=== PATIENT | female | born 1940 | race African-American/Black ===

== ENCOUNTER → 2016-08-16 | Outpatient (CLI) | payer MEDICARE ==
[2016-08-16 13:23] LABS: PROTHROMBIN TIME 26.4 SEC (11.4-15.4)
== END ==
LOC: OD 12:42
PROVIDERS: ATTEND Internal Medicine Cardiovascular Disease
DX: I48.0 Paroxysmal atrial fibrillation (principal)
CPT/HCPCS: 36415; 85610

== ENCOUNTER → 2016-09-06 | Outpatient (CLI) | payer MEDICARE ==
[2016-09-06 13:07] LABS: PROTHROMBIN TIME 25.5 SEC (11.4-15.4)
== END ==
LOC: OD 11:49
PROVIDERS: ATTEND Internal Medicine Cardiovascular Disease
DX: I48.0 Paroxysmal atrial fibrillation (principal)
CPT/HCPCS: 36415; 85610

== ENCOUNTER → 2016-09-30 | Outpatient (CLI) | payer MEDICARE ==
[2016-09-30 12:43] LABS: PROTHROMBIN TIME 23.6 SEC (11.4-15.4)
== END ==
LOC: OD 11:19
PROVIDERS: ATTEND Internal Medicine Cardiovascular Disease
DX: I48.0 Paroxysmal atrial fibrillation (principal)
CPT/HCPCS: 36415; 85610

== ENCOUNTER → 2016-11-05 | Outpatient (CLI) | payer MEDICARE ==
[2016-11-05 09:29] LABS: PROTHROMBIN TIME 28.5 SEC (11.4-15.4)
== END ==
LOC: OD 08:36
PROVIDERS: ATTEND Internal Medicine Cardiovascular Disease
DX: I48.0 Paroxysmal atrial fibrillation (principal)
CPT/HCPCS: 36415; 85610

== ENCOUNTER → 2016-12-10 | Outpatient (CLI) | payer MEDICARE ==
[2016-12-10 09:39] LABS: PROTHROMBIN TIME 25.8 SEC (11.4-15.4)
== END ==
LOC: OD 08:40
PROVIDERS: ATTEND Internal Medicine Cardiovascular Disease
DX: I48.0 Paroxysmal atrial fibrillation (principal)
CPT/HCPCS: 36415; 85610

== ENCOUNTER → 2016-12-27 | Outpatient (CLI) | payer MEDICARE ==
[2016-12-27 09:06] LABS: ALANINE AMINOTRANSFERASE 25 U/L (9-52); ALBUMIN 4.1 g/dL (3.5-5.0); ALKALINE PHOSPHATASE 70 U/L (38-126); ANION GAP 13 (5-19); ASPARTATE AMINO TRANSFERASE 20 U/L (14-36); BILIRUBIN,DIRECT 0.2 mg/dL (0.0-0.4); BILIRUBIN,TOTAL 0.3 mg/dL (0.2-1.3); BLOOD UREA NITROGEN 21 mg/dL (7-20); CALCIUM 9.7 mg/dL (8.4-10.2); CARBON DIOXIDE 26 mmol/L (22-30); CHLORIDE 103 mmol/L (98-107); CHOLESTEROL 187.55 mg/dL (0-200); CREATININE RESULT 0.81 mg/dL (0.52-1.25); Direct HDL 109 mg/dL (>40); GLUCOSE 91 mg/dL (75-110); SODIUM 141.5 mmol/L (137-145); TOTAL PROTEIN 6.8 g/dL (6.3-8.2); TRIGLYCERIDES 69 mg/dL (<150)
[2016-12-27 09:17] LABS: DIRECT LDL 50 mg/dL (<100)
== END ==
LOC: OD 07:56
PROVIDERS: ATTEND Internal Medicine Geriatric Medicine
DX: E11.65 Type 2 diabetes mellitus with hyperglycemia (principal); I10 Essential (primary) hypertension
CPT/HCPCS: 36415; 80053; 80061

== ENCOUNTER → 2017-01-09 | Outpatient (CLI) | payer MEDICARE ==
[2017-01-09 13:09] LABS: PROTHROMBIN TIME 26.1 SEC (11.4-15.4)
== END ==
LOC: OD 11:33
PROVIDERS: ATTEND Internal Medicine Cardiovascular Disease
DX: I48.0 Paroxysmal atrial fibrillation (principal)
CPT/HCPCS: 36415; 85610

== ENCOUNTER → 2017-01-29 | Outpatient (CLI) | payer MEDICARE ==
[2017-01-29 14:59] LABS: PROTHROMBIN TIME 25.1 SEC (11.4-15.4)
== END ==
LOC: OD 13:56
PROVIDERS: ATTEND Internal Medicine Cardiovascular Disease
DX: I48.0 Paroxysmal atrial fibrillation (principal)
CPT/HCPCS: 36415; 85610

== ENCOUNTER → 2017-02-28 | Outpatient (CLI) | payer MEDICARE ==
[2017-02-28 10:45] LABS: PROTHROMBIN TIME 24.2 SEC (11.4-15.4)
== END ==
LOC: OD 09:54
PROVIDERS: ATTEND Internal Medicine Cardiovascular Disease
DX: I48.0 Paroxysmal atrial fibrillation (principal)
CPT/HCPCS: 36415; 85610

== ENCOUNTER 2017-03-03 10:30 | Day surgery (SDC) | payer MEDICARE ==
[~2017-03-03 10:30] MED LIST: PROPOFOL INJ 200 MG/20 ML VIAL IV ONE
[2017-03-03 12:20] VITALS: BP 129/66
--- NOTE | 2017-03-03 13:33 | Operative Report ---
Operative Report DATE OF SURGERY: 03/03/17 Operative Report: The risks, benefits and alternatives of the procedure including risks of bleeding, perforation requiring surgery are explained to the patient in detail and informed consent is obtained. Patient was taken back to the endoscopy suite and placed in the left, lateral decubital position. Timeout was called. Propofol medications administered. A rectal examination was done which did not reveal any masses, tears or fissures. An Olympus video scope was inserted into the patient's rectum. The scope was then carefully guided all the way to the cecum. The cecum was identified by the usual anatomical landmarks including the ileocecal valve and the appendiceal orifice. Photodocumentation is obtained. Prep is good. Scope was then sequentially pulled back via the various segments of the colon including the ascending colon, hepatic flexure, transverse colon, splenic flexure, descending colon and finding to the rectosigmoid portions of the colon. Retroflexion maneuver was performed. The risks benefits and alternatives of the procedure explained to the patient in detail and informed consent is obtained.A GIF Olympus video scope was inserted into the patient's mouth and hypopharynx ,the esophagus is identified intubated and insufflated, the scope was then advanced through the esophagus stomach and duodenum, retroflexion maneuver is done, the esophagus stomach and first and second portions of the duodenum examined PREOPERATIVE DIAGNOSIS: Weight loss. Personal history of colon polyp. Change of bowel habits POSTOPERATIVE DIAGNOSIS: The sigmoid polyps were removed via snare polypectomy and retrieved. Right side diverticulosis. Internal hemorrhoids. Gastritis status post biopsy rule out Helicobacter pylori OPERATION: Colonoscopy with snare polypectomy. EGD with biopsy SURGEON: ANOOP MARTINEZ ANESTHESIA: LMAC TISSUE REMOVED OR ALTERED: As described above COMPLICATIONS: None. ESTIMATED BLOOD LOSS: None. INTRAOPERATIVE FINDINGS: As described above. No bleeding noted. PROCEDURE: Patient tolerated the procedure well. No immediate postprocedure complications are noted. Patient discharged in good condition. Discharge date 03/03/2017. Discharge diet: Regular. Discharge activity: Regular. 2-3 week follow-up to discuss findings. Patient is instructed to call the office or proceed to the emergency room should there be any further problems or questions. We will wait on pathology. 3-5 year surveillance on the next colonoscopy.
== END 2017-03-03 12:20 | disposition home or self-care (01) ==
LOC: END 10:30
PROVIDERS: ATTEND Internal Medicine Gastroenterology
PROC: 0DB68ZX Excision of Stomach, Via Natural or Artificial Opening Endoscopic, Diagnostic (ICD-10-PCS; principal; 2017-03-03 11:30)
PROC: 0DBN8ZX Excision of Sigmoid Colon, Via Natural or Artificial Opening Endoscopic, Diagnostic (ICD-10-PCS; 2017-03-03 11:30)
DX: K63.5 Polyp of colon (principal); K64.8 Other hemorrhoids; K57.30 Diverticulosis of large intestine without perforation or abscess without bleeding; K31.9 Disease of stomach and duodenum, unspecified; E11.9 Type 2 diabetes mellitus without complications; I10 Essential (primary) hypertension; J45.909 Unspecified asthma, uncomplicated; J43.9 Emphysema, unspecified; R63.4 Abnormal weight loss; Z79.84 Long term (current) use of oral hypoglycemic drugs; Z79.899 Other long term (current) drug therapy; Z79.51 Long term (current) use of inhaled steroids; Z88.6 Allergy status to analgesic agent; Z68.21 Body mass index [BMI] 21.0-21.9, adult
CPT/HCPCS: 43239; 45385; 82962; 88342 ×2; 88305 ×2; J2704; 810

== ENCOUNTER → 2017-03-26 | Outpatient (CLI) | payer MEDICARE ==
[2017-03-26 17:12] LABS: PROTHROMBIN TIME 20.1 SEC (11.4-15.4)
== END ==
LOC: OD 15:54
PROVIDERS: ATTEND Internal Medicine Cardiovascular Disease
DX: I48.0 Paroxysmal atrial fibrillation (principal)
CPT/HCPCS: 36415; 85610

== ENCOUNTER → 2017-04-09 | Outpatient (CLI) | payer MEDICARE ==
[2017-04-09 11:48] LABS: PROTHROMBIN TIME 27.5 SEC (11.4-15.4)
== END ==
LOC: OD 10:59
PROVIDERS: ATTEND Internal Medicine Cardiovascular Disease
DX: I48.0 Paroxysmal atrial fibrillation (principal)
CPT/HCPCS: 36415; 85610

== ENCOUNTER → 2017-04-30 | Outpatient (CLI) | payer MEDICARE ==
[2017-04-30 12:52] LABS: PROTHROMBIN TIME 23.9 SEC (11.4-15.4)
== END ==
LOC: OD 11:46
PROVIDERS: ATTEND Internal Medicine Cardiovascular Disease
DX: I48.0 Paroxysmal atrial fibrillation (principal)
CPT/HCPCS: 36415; 85610

== ENCOUNTER → 2017-06-03 | Outpatient (CLI) | payer MEDICARE ==
[2017-06-03 11:19] LABS: PROTHROMBIN TIME 27.7 SEC (11.4-15.4)
== END ==
LOC: OD 10:12
PROVIDERS: ATTEND Internal Medicine Cardiovascular Disease
DX: I48.0 Paroxysmal atrial fibrillation (principal)
CPT/HCPCS: 36415; 85610

== ENCOUNTER → 2017-07-16 | Outpatient (CLI) | payer MEDICARE ==
[2017-07-16 09:21] LABS: PROTHROMBIN TIME 36.5 SEC (11.4-15.4)
== END ==
LOC: OD 08:41
PROVIDERS: ATTEND Internal Medicine Cardiovascular Disease
DX: I48.0 Paroxysmal atrial fibrillation (principal)
CPT/HCPCS: 36415; 85610

== ENCOUNTER → 2017-07-23 | Outpatient (CLI) | payer MEDICARE | LOC: LAB 08:13 | PROVIDERS: ATTEND Internal Medicine Geriatric Medicine | DX: E11.65 Type 2 diabetes mellitus with hyperglycemia (principal); I48.0 Paroxysmal atrial fibrillation | CPT/HCPCS: 36415; 83036; 85610 ==

== ENCOUNTER → 2017-08-06 | Outpatient (CLI) | payer MEDICARE ==
[2017-08-06 11:06] LABS: INTERNATIONAL RATION (INR) 2.51; PROTHROMBIN TIME 28.4 SEC (11.4-15.4)
== END ==
LOC: OD 09:21
PROVIDERS: ATTEND Internal Medicine Cardiovascular Disease
DX: I48.0 Paroxysmal atrial fibrillation (principal)
CPT/HCPCS: 36415; 85610

== ENCOUNTER → 2017-08-22 | Outpatient (CLI) | payer MEDICARE ==
[2017-08-22 11:12] LABS: INTERNATIONAL RATION (INR) 2.59; PROTHROMBIN TIME 29.1 SEC (11.4-15.4)
== END ==
LOC: OD 10:28
PROVIDERS: ATTEND Internal Medicine Cardiovascular Disease
DX: I48.0 Paroxysmal atrial fibrillation (principal)
CPT/HCPCS: 36415; 85610

== ENCOUNTER → 2017-08-29 | Outpatient (CLI) | payer MEDICARE ==
[2017-08-29 11:12] LABS: INTERNATIONAL RATION (INR) 2.29; PROTHROMBIN TIME 26.4 SEC (11.4-15.4)
== END ==
LOC: OD 10:03
PROVIDERS: ATTEND Internal Medicine Cardiovascular Disease
DX: I48.0 Paroxysmal atrial fibrillation (principal)
CPT/HCPCS: 36415; 85610

== ENCOUNTER → 2017-09-12 | Outpatient (CLI) | payer MEDICARE ==
[2017-09-12 10:25] LABS: INTERNATIONAL RATION (INR) 2.36; PROTHROMBIN TIME 27.1 SEC (11.4-15.4)
== END ==
LOC: OD 09:21
PROVIDERS: ATTEND Internal Medicine Cardiovascular Disease
DX: I48.0 Paroxysmal atrial fibrillation (principal)
CPT/HCPCS: 36415; 85610

== ENCOUNTER → 2017-09-26 | Outpatient (CLI) | payer MEDICARE ==
[2017-09-26 12:38] LABS: INTERNATIONAL RATION (INR) 2.11; PROTHROMBIN TIME 24.8 SEC (11.4-15.4)
== END ==
LOC: OD 11:10
PROVIDERS: ATTEND Internal Medicine Cardiovascular Disease
DX: I48.0 Paroxysmal atrial fibrillation (principal)
CPT/HCPCS: 36415; 85610

== ENCOUNTER → 2017-10-10 | Outpatient (CLI) | payer MEDICARE ==
[2017-10-10 12:14] LABS: INTERNATIONAL RATION (INR) 2.09; PROTHROMBIN TIME 24.6 SEC (11.4-15.4)
== END ==
LOC: OD 11:13
PROVIDERS: ATTEND Internal Medicine Cardiovascular Disease
DX: I48.0 Paroxysmal atrial fibrillation (principal)
CPT/HCPCS: 36415; 85610

== ENCOUNTER → 2017-10-29 | Outpatient (CLI) | payer MEDICARE ==
[2017-10-29 10:33] LABS: INTERNATIONAL RATION (INR) 2.17; PROTHROMBIN TIME 25.3 SEC (11.4-15.4)
== END ==
LOC: OD 08:33
PROVIDERS: ATTEND Internal Medicine Cardiovascular Disease
DX: I48.0 Paroxysmal atrial fibrillation (principal)
CPT/HCPCS: 36415; 85610

== ENCOUNTER → 2017-11-27 | Outpatient (CLI) | payer MEDICARE ==
[2017-11-27 14:51] LABS: INTERNATIONAL RATION (INR) 2.12; PROTHROMBIN TIME 24.8 SEC (11.4-15.4)
== END ==
LOC: OD 14:21
PROVIDERS: ATTEND Internal Medicine Cardiovascular Disease
DX: I48.0 Paroxysmal atrial fibrillation (principal)
CPT/HCPCS: 36415; 85610

== ENCOUNTER → 2018-01-02 | Outpatient (CLI) | payer MEDICARE ==
[2018-01-02 10:52] LABS: INTERNATIONAL RATION (INR) 2.32; PROTHROMBIN TIME 26.6 SEC (11.4-15.4)
== END ==
LOC: OD 10:07
PROVIDERS: ATTEND Internal Medicine Cardiovascular Disease
DX: I48.0 Paroxysmal atrial fibrillation (principal)
CPT/HCPCS: 36415; 85610

== ENCOUNTER → 2018-01-23 | Outpatient (CLI) | payer MEDICARE ==
[2018-01-23 11:13] LABS: INTERNATIONAL RATION (INR) 2.16; PROTHROMBIN TIME 25.2 SEC (11.4-15.4)
== END ==
LOC: OD 10:14
PROVIDERS: ATTEND Internal Medicine Cardiovascular Disease
DX: I48.0 Paroxysmal atrial fibrillation (principal)
CPT/HCPCS: 36415; 85610

== ENCOUNTER → 2018-03-03 | Outpatient (CLI) | payer MEDICARE ==
[2018-03-03 09:45] LABS: INTERNATIONAL RATION (INR) 2.04
== END ==
LOC: OD 08:49
PROVIDERS: ATTEND Internal Medicine Cardiovascular Disease
DX: I48.0 Paroxysmal atrial fibrillation (principal)
CPT/HCPCS: 36415; 85610

== ENCOUNTER → 2018-04-02 | Outpatient (CLI) | payer MEDICARE ==
[2018-04-02 14:30] LABS: INTERNATIONAL RATION (INR) 1.89; PROTHROMBIN TIME 22.7 SEC (11.4-15.4)
== END ==
LOC: OD 13:10
PROVIDERS: ATTEND Internal Medicine Cardiovascular Disease
DX: I48.0 Paroxysmal atrial fibrillation (principal)
CPT/HCPCS: 36415; 85610

== ENCOUNTER → 2018-04-28 | Outpatient (CLI) | payer MEDICARE ==
[2018-04-28 12:58] LABS: INTERNATIONAL RATION (INR) 2.11; PROTHROMBIN TIME 24.7 SEC (11.4-15.4)
== END ==
LOC: OD 11:48
PROVIDERS: ATTEND Internal Medicine Cardiovascular Disease
DX: I48.0 Paroxysmal atrial fibrillation (principal)
CPT/HCPCS: 36415; 85610

== ENCOUNTER → 2018-05-04 | Outpatient (CLI) | payer MEDICARE ==
--- NOTE | 2018-05-04 15:12 | RADIOLOGY REPORT (SQ) ---
EXAM DESCRIPTION: CAROTID DOPPLER COMPLETED DATE/TIME: 05/04/2018 1:52 pm REASON FOR STUDY: I99.8 I99.8 OTHER DISORDER OF CIRCULATORY SYSTEM COMPARISON: None. TECHNIQUE: Grayscale ultrasound, Doppler velocity and spectra, and color Doppler images acquired of the extra-cranial carotid and vertebral arteries. Images stored on PACS. LIMITATIONS: None. FINDINGS: RIGHT CAROTID CCA Velocities: Within normal limits. ICA Velocities Peak systolic 61 cm/s. End diastolic 23 cm/s. Proximal ICA/CCA peak systolic ratio 1.23. Mild noncalcified plaque in the carotid bulb. Spectra normal. LEFT CAROTID CCA Velocities: Within normal limits. ICA Velocities Peak systolic 92 cm/s. End diastolic 27 cm/s. Proximal ICA/CCA peak systolic ratio 1.48. Slight noncalcified plaque in the larotid bulb. Spectra normal. VERTEBRAL ARTERIES: Antegrade flow. Normal waveforms. SUBCLAVIAN ARTERIES: No finding. OTHER: No other significant finding. IMPRESSION: 1. NO HEMODYNAMICALLY SIGNIFICANT STENOSIS. COMMENT: Quality ID #[id number]: Velocity criteria are extrapolated from the diameter data as defined by t he Society of Radiologists in Ultrasound Consensus Conference. Radiology 2003: 229; 340-346. TECHNICAL DOCUMENTATION: JOB ID: [id number] [employer]- All Rights Reserved Reading location - IP/workstation name: [email or web address]
== END ==
LOC: SP 15:32
PROVIDERS: ATTEND Internal Medicine Geriatric Medicine
DX: I99.8 Other disorder of circulatory system (principal)
CPT/HCPCS: 93880

== ENCOUNTER → 2018-05-29 | Outpatient (CLI) | payer MEDICARE ==
[2014-01-20 11:20] LABS: INTERNATIONAL RATION (INR) 2.38; PROTHROMBIN TIME 25.3 SEC (11.4-15.4)
== END ==
LOC: OD 09:26
PROVIDERS: ATTEND Internal Medicine Cardiovascular Disease
DX: I48.0 Paroxysmal atrial fibrillation (principal)
CPT/HCPCS: 36415; 85610

== ENCOUNTER → 2018-06-01 | Outpatient (CLI) | payer MEDICARE ==
[2018-05-29 10:06] LABS: INTERNATIONAL RATION (INR) 1.94; PROTHROMBIN TIME 23.1 SEC (11.4-15.4)
== END ==
LOC: LAB 08:15
PROVIDERS: ATTEND Internal Medicine Cardiovascular Disease
DX: I48.0 Paroxysmal atrial fibrillation (principal)
CPT/HCPCS: 36415; 85610

== ENCOUNTER 2018-07-08 09:26 | Emergency (ER) | payer MEDICARE ==
[2018-07-08] MEDS ORDERED: ONDANSETRON HCL INJ/PF 4 MG/2 ML SDV IV ONE (10:14)
[2018-07-08 10:43] LABS: APPEARANCE,URINE CLEAR; BILIRUBIN,URINE NEGATIVE (NEGATIVE); COLOR,URINE STRAW; GLUCOSE, URINE NEGATIVE (NEGATIVE); KETONES,URINE NEGATIVE (NEGATIVE); LEUKOCYTE ESTERASE,URINE NEGATIVE (NEGATIVE); NITRITE,URINE NEGATIVE (NEGATIVE); PROTEIN,URINE NEGATIVE (NEGATIVE); URINE SPECIFIC GRAVITY 1.012; UROBILINOGEN,URINE NEGATIVE mg/dL (<2.0)
--- NOTE | 2018-07-08 11:13 | RADIOLOGY REPORT (SQ) ---
EXAM DESCRIPTION: CT FACIAL AREA WITHOUT COMPLETED DATE/TIME: 07/08/2018 10:57 am REASON FOR STUDY: syncope this am x2, hit face and head COMPARISON: None. TECHNIQUE: Noncontrasted images through the facial bones and orbits windowed for bone and soft tissu e. Additional coronal and sagittal reconstructed images reviewed. All images stored on PACS. All CT scanners at this facility use dose modulation, iterative reconstruction, and/or weight based d osing when appropriate to reduce radiation dose to as low as reasonably achievable (ALARA). [facility]: Dose Right [facility]: CareDose [facility]: Dose Right [facility]: Teradose 4D [facility]: Smart [employer] RADIATION DOSE: CT Rad equipment meets quality standard of care and radiation dose reduction techniq ues were employed. CTDIvol: 30.4 mGy. DLP: 589 mGy-cm. mGy. LIMITATIONS: None. FINDINGS: FACIAL BONES: No fracture or bone lesion. ORBITS: Intact. No fracture. Symmetric intact globes and retroorbital soft tissues. PARANASAL SINUSES: Clear. SOFT TISSUES: No mass or edema. INFERIOR BRAIN: See separate report same date. OTHER: No other significant finding. IMPRESSION: NO ACUTE FINDINGS. TECHNICAL DOCUMENTATION: JOB ID: [id number] Quality ID # [id number]: Final reports with documentation of one or more dose reduction techniques (e.g., Au tomated exposure control, adjustment of the mA and/or kV according to patient size, use of iterative reconstruction technique) 2010 [employer]- All Rights Reserved Reading location - IP/workstation name: [email or web address]
--- NOTE | 2018-07-08 11:19 | RADIOLOGY REPORT (SQ) ---
EXAM DESCRIPTION: CT HEAD WITHOUT COMPLETED DATE/TIME: 07/08/2018 10:57 am REASON FOR STUDY: syncope x2 this am, hit head COMPARISON: None. TECHNIQUE: Axial images acquired through the brain without intravenous contrast. Images reviewed wi th bone, brain and subdural windows. Additional sagittal and coronal reconstructions were generated. Images stored on PACS. All CT scanners at this facility use dose modulation, iterative reconstruction, and/or weight based d osing when appropriate to reduce radiation dose to as low as reasonably achievable (ALARA). [facility]: Dose Right [facility]: CareDose [facility]: Dose Right [facility]: Teradose 4D [facility]: Smart [employer] RADIATION DOSE: CT Rad equipment meets quality standard of care and radiation dose reduction techniq ues were employed. CTDIvol: 53.2 mGy. DLP: 1097 mGy-cm.mGy. LIMITATIONS: None. FINDINGS: VENTRICLES: Prominent. CEREBRUM: Old lacunar infarct right basal ganglia. No masses. No hemorrhage. No midline shift. Ar eas of low density in the white matter most likely due to chronic micro-vascular ischemic change. No evidence for acute infarction. CEREBELLUM: No masses. No hemorrhage. No alteration of density. No evidence for acute infarction. EXTRAAXIAL SPACES: Age-related involutional change. No fluid collections. No masses. ORBITS AND GLOBE: No intra- or extraconal masses. Normal contour of globe without masses. CALVARIUM: No fracture. PARANASAL SINUSES: No fluid or mucosal thickening. SOFT TISSUES: No mass or hematoma. OTHER: No other significant finding. IMPRESSION: CHRONIC CHANGES OF ATROPHY AND MICROVASCULAR ISCHEMIA. NO ACUTE PROCESS. EVIDENCE OF ACUTE STROKE: NO. TECHNICAL DOCUMENTATION: JOB ID: [id number] Quality ID # [id number]: Final reports with documentation of one or more dose reduction techniques (e.g., Au tomated exposure control, adjustment of the mA and/or kV according to patient size, use of iterative reconstruction technique) 2010 [email or web address]- All Rights Reserved Reading location - IP/workstation name: [email or web address]
[2018-07-08 11:20] LABS: HEMATOCRIT 29.5 % (36.0-47.0); HEMOGLOBIN 9.8 g/dL (12.0-15.5); MEAN CORPUSCULAR HEMOGLOBIN 28.1 pg (27.0-33.4); MEAN CORPUSCULAR HGB CONC 33.3 g/dL (32.0-36.0); MEAN CORPUSCULAR VOLUME 84 fl (80-97); RED BLOOD COUNT 3.51 10^6/uL (3.72-5.28); RED CELL DISTRIBUTION WIDTH 14.3 % (11.5-14.0); WHITE BLOOD COUNT 8.5 10^3/uL (4.0-10.5)
--- NOTE | 2018-07-08 11:27 | RADIOLOGY REPORT (SQ) ---
EXAM DESCRIPTION: CT CERVICAL SPINE WITHOUT COMPLETED DATE/TIME: 07/08/2018 10:57 am REASON FOR STUDY: unwitnessed fall COMPARISON: None. TECHNIQUE: Axial images acquired through the cervical spine without intravenous contrast. Images re viewed with lung, soft tissue and bone windows. Reconstructed coronal and sagittal MPR images review ed. Images stored on PACS. All CT scanners at this facility use dose modulation, iterative reconstruction, and/or weight based d osing when appropriate to reduce radiation dose to as low as reasonably achievable (ALARA). [facility]: Dose Right [facility]: CareDose [facility]: Dose Right [facility]: Teradose 4D [facility]: [employer] RADIATION DOSE: CT Rad equipment meets quality standard of care and radiation dose reduction techniq ues were employed. CTDIvol: 9.6 mGy. DLP: 188 mGy-cm. mGy. LIMITATIONS: None. FINDINGS: ALIGNMENT: Anatomic. MINERALIZATION: Normal. VERTEBRAL BODIES: No fractures or dislocation. DISCS: Multilevel disc space narrowing with osteophytes. FACETS, LATERAL MASSES, POSTERIOR ELEMENTS: Facet arthropathy. No fractures. No dislocation. No ac uday findings. HARDWARE: None in the spine. VISUALIZED RIBS: No fractures. LUNG APICES AND SOFT TISSUES: No significant or acute findings. OTHER: No other significant finding. IMPRESSION: CHRONIC DEGENERATIVE CHANGES. NO ACUTE FINDINGS. TECHNICAL DOCUMENTATION: JOB ID: [id number] Quality ID # [id number]: Final reports with documentation of one or more dose reduction techniques (e.g., Au tomated exposure control, adjustment of the mA and/or kV according to patient size, use of iterative reconstruction technique) 2010 [employer]- All Rights Reserved Reading location - IP/workstation name: [email or web address]
--- NOTE | 2018-07-08 11:34 | RADIOLOGY REPORT (SQ) ---
EXAM DESCRIPTION: ACUTE ABDOMEN SERIES COMPLETED DATE/TIME: 07/08/2018 11:02 am REASON FOR STUDY: eval for retained stool COMPARISON: None. NUMBER OF VIEWS: Three views. TECHNIQUE: Frontal chest, supine abdomen and upright/decubitus abdomen radiographic images acquired. LIMITATIONS: None. FINDINGS: CHEST: Lungs clear of infiltrates. FREE AIR: None. No abnormal gas collections. BOWEL GAS PATTERN: Abundant fecal material from the splenic flexure to the rectum. Gas fluid levels within nondilated small bowel. CALCIFICATIONS: No suspicious calcifications. HARDWARE: None in the abdomen. SOFT TISSUES: No gross mass or suggestion of organomegaly. BONES: No acute fracture. No worrisome bone lesions. OTHER: No other significant finding. IMPRESSION: Mild fecal retention. TECHNICAL DOCUMENTATION: JOB ID: [id number] [employer]- All Rights Reserved Reading location - IP/workstation name: [email or web address]
[2018-07-08 11:44] LABS: ABSOLUTE LYMPHOCYTES# (MANUAL) 0.6 10^3/uL (0.5-4.7); ABSOLUTE MONOCYTES # (MANUAL) 0.2 10^3/uL (0.1-1.4); ABSOLUTE NEUTROPHILS# (MANUAL) 7.7 10^3/uL (1.7-8.2); ALANINE AMINOTRANSFERASE 11 U/L (9-52); ALBUMIN 3.9 g/dL (3.5-5.0); ALKALINE PHOSPHATASE 58 U/L (38-126); ANION GAP 12 (5-19); ASPARTATE AMINO TRANSFERASE 15 U/L (14-36); BASOPHILS % (MANUAL) 0 % (0-2); BILIRUBIN,DIRECT 0.2 mg/dL (0.0-0.4); BILIRUBIN,TOTAL 0.3 mg/dL (0.2-1.3); BLOOD UREA NITROGEN 25 mg/dL (7-20); CALCIUM 9.6 mg/dL (8.4-10.2); CARBON DIOXIDE 29 mmol/L (22-30); CHLORIDE 100 mmol/L (98-107); CREATINE KINASE 39 U/L (30-135); EOSINOPHILS % (MANUAL) 0 % (0-6); GLUCOSE 99 mg/dL (75-110); LYMPHOCYTES % (MANUAL) 7 % (13-45); MONOCYTES % (MANUAL) 2 % (3-13); POTASSIUM 3.8 mmol/L (3.6-5.0); SEGMENTED NEUTROPHILS % (MAN) 91 % (42-78); SODIUM 140.7 mmol/L (137-145); TOTAL CELLS COUNTED 100; TOTAL PROTEIN 6.6 g/dL (6.3-8.2)
[2018-07-08] MEDS ORDERED: MINERAL OIL 30 ML UDCUP PR ONE (11:50)
[2018-07-08] MEDS ORDERED: MAGNESIUM CITRATE 296 ML BOTTLE PO ONE (11:50)
--- NOTE | 2018-07-08 11:52 | ER Document Report ---
ED General - General Chief Complaint: Passed Out Prior to Arrival Stated Complaint: CONSTIPATION Time Seen by Provider: 07/08/18 09:58 Mode of Arrival: Medic Information source: Patient, Relative Notes: Patient is a relatively healthy 78-year-old female who presents to the emergency department with chief complaint of constipation. Patient reports she has not had a bowel movement in 5 days. Upon further questioning, patient reports that this morning she passed out while she was sitting on the toilet. She thinks this is due to the pain at her rectum due to straining. She states that as soon as she had the ground she came to and remembers having some pain to her facial area across the bridge of her nose and forehead. Patient denies any nausea, vomiting, diarrhea or fever. She denies any chest pain or shortness of breath. Patient's daughters are accompanying her at the bedside and states that she has been doing well and has not been sick lately. TRAVEL OUTSIDE OF THE [place] IN LAST 30 DAYS: No - Related Data Allergies/Adverse Reactions: aspirin [Aspirin] Allergy (Verified 07/08/18 09:28) Tachycardia propoxyphene napsylate [From Darvocet-N 100] Adverse Reaction (Verified 09:28) Nausea Past Medical History - General Information source: Patient - Social History Smoking Status: Former Smoker Chew tobacco use (# tins/day): No Frequency of alcohol use: None Family History: Reviewed & Not Pertinent Patient has suicidal ideation: No Patient has homicidal ideation: No - Past Medical History Cardiac Medical History: Reports: Hx Atrial Fibrillation, Hx Heart Attack, Hx Hypertension Denies: Hx Coronary Artery Disease Pulmonary Medical History: Reports: Hx COPD - NO OXYGEN Denies: Hx Asthma, Hx Bronchitis, Hx Pneumonia Neurological Medical History: Denies: Hx Cerebrovascular Accident, Hx Seizures Endocrine Medical History: Reports: Hx Diabetes Mellitus Type 2 Renal/ Medical History: Denies: Hx Peritoneal Dialysis GI Medical History: Denies: Hx Hepatitis, Hx Hiatal Hernia, Hx Ulcer Musculoskeletal Medical History: 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 Denies: Hx Mastectomy, Hx Open Heart Surgery, Hx Pacemaker - Immunizations Hx Diphtheria, Pertussis, Tetanus Vaccination: Yes Hx Pneumococcal Vaccination: 07/04/17 Review of Systems - Review of Systems Gastrointestinal: Constipation Musculoskeletal: Other - Facial pain Neurological/Psychological: Other - Syncopal episode -: Yes All other systems reviewed and negative Physical Exam - Vital signs Vitals: Temp Pulse Resp BP Pulse Ox 97.7 F 72 20 117/65 100 07/08/18 09:31 07/08/18 09:31 07/08/18 09:31 07/08/18 09:31 07/08/18 09:31 - Notes Notes: PHYSICAL EXAMINATION: GENERAL: Well-appearing, well-nourished and in no acute distress. HEAD: Atraumatic, normocephalic, no erythema, ecchymosis or swelling noted. EYES: Pupils equal round and reactive to light, extraocular movements intact, conjunctiva are normal. ENT: Nares patent, oropharynx clear without exudates. Moist mucous membranes. NECK: Normal range of motion, supple without lymphadenopathy LUNGS: Breath sounds clear to auscultation bilaterally and equal. No wheezes rales or rhonchi. HEART: Regular rate and rhythm without murmurs ABDOMEN: Soft, nontender, nondistended abdomen. No guarding, no rebound. No masses appreciated. Female : No CVA tenderness. Musculoskeletal: Normal range of motion, no pitting or edema. No cyanosis. NEUROLOGICAL: Cranial nerves grossly intact. Normal speech. Normal sensory, motor exams PSYCH: Normal mood, normal affect. SKIN: Warm, Dry, normal turgor, no rashes or lesions noted. Course - Re-evaluation Re-evalutation: CT of the head, facial bones and C-spine were negative for any acute findings. Acute abdomen series x-ray with abundant amount of stool noted. CBC, CMP and cardiac enzymes are unremarkable. Delta troponin is also unremarkable. EKG normal axis, rate of 68, sinus rhythm, no ST segment elevations or depressions, unchanged from patient's previous EKG on record. Patient's vital signs have been stable while in the emergency department. Patient was given both magnesium citrate p.o. as well as a mineral oil with soapsuds enema. Patient produced a very large bowel movement and reports that she feels much improved. Patient reports she has a follow-up with her primary care provider for next week. Patient will be discharged home in stable condition at this time. - Vital Signs Vital signs: Temp Pulse Resp BP Pulse Ox 97.7 F 70 17 92/63 L 97 07/08/18 09:31 07/08/18 11:37 07/08/18 15:01 07/08/18 15:01 07/08/18 13:00 - Laboratory Result Diagrams: 07/08/18 11:10 07/08/18 11:10 Laboratory results interpreted by me: 07/08/18 07/08/18 07/08/18 10:20 11:10 11:10 RBC 3.51 L Hgb 9.8 L Hct 29.5 L RDW 14.3 H Seg Neuts % (Manual) 91 H Lymphocytes % (Manual) 7 L Monocytes % (Manual) 2 L BUN 25 H Urine Blood SMALL H Discharge - Discharge Clinical Impression: Constipation Qualifiers: Constipation type: unspecified constipation type Qualified Code(s): K59.00 - Constipation, unspecified Condition: Stable Disposition: HOME, SELF-CARE Additional Instructions: Constipation Constipation is a common problem. It is especially likely as you get older. Constipation is a common cause of abdominal pain, but sometimes causes no symptoms at all. Causes of constipation include certain medications, dehydration, diets, inactivity, and low-fiber intake. Rarely, it can be a symptom of underlying disease. The physician has evaluated you for this. Avoid constipation by eating a diet high in fiber, fruits, and vegetables. Drink plenty of liquids. Get regular exercise. If possible, avoid constipating medicines like narcotic pain medication. Some vitamin tablets can cause constipation. Stool softeners may be needed for difficult cases. An excellent stool softener is Konsyl which is available at [employer], and [employer] drug store. Just add a teaspoon to a glass of pineapple or orange juice daily or twice a day if needed. Laxatives are useful for occasional constipation. You should use them only when necessary. Too-frequent use can make your bowels dependent on them. Some over the counter laxatives available without prescription are: Miralax powder (take 1 capful daily) For acute constipation, Fleet's Enemas and Dulcolax suppositories are helpful. Chronic, alf use of laxatives or enemas is not a good idea. Your bowel may become dependant on them. You do not need to have a bowel movement every day. Many people do fine with a bowel movement every three or four days. You should call your doctor or return for re-evaluation if you pass blood in the stool, or if you develop fever or increasing abdominal pain. Your workup today was normal. You had a large bowel movement after administration of the enema. Please keep your follow-up appointment that you have for next week with Dr. Alvarez. Let him know you were seen here in the emergency department. Referrals: BHARATHI PETERS MD [Primary Care Provider] - Follow up as needed
[2018-07-08 11:53] LABS: ANISOCYTOSIS SLIGHT; OVALOCYTES SLIGHT; PLATELET CLUMPS PRESENT; PLATELET COUNT 313 10^3/uL (150-450); POIKILOCYTOSIS SLIGHT; POLYCHROMASIA SLIGHT; TARGET CELLS SLIGHT
[2018-07-08 11:54] LABS: PLATELET COMMENT ADEQUATE
[2018-07-08 11:57] LABS: CREATINE KINASE MB 1.26 ng/mL (<4.55)
[2018-07-08 12:00] LABS: TROPONIN I < 0.012 ng/mL
--- NOTE | 2018-07-08 12:00 | EKG REPORT ---
SEVERITY:- BORDERLINE ECG - SINUS RHYTHM LOW VOLTAGE IN FRONTAL LEADS CONSIDER ANTERIOR INFARCT : Confirmed by: Natalia Murray 08-Jul-2018 11:59:42
[2018-07-08 15:11] VITALS: BP 92/63
== END 2018-07-08 15:15 | disposition home or self-care (01) ==
LOC: ER 09:26
DX: K59.00 Constipation, unspecified (principal); R55 Syncope and collapse; J34.89 Other specified disorders of nose and nasal sinuses; R51 Headache; W18.11XA Fall from or off toilet without subsequent striking against object, initial encounter; Y93.89 Activity, other specified; I10 Essential (primary) hypertension; J44.9 Chronic obstructive pulmonary disease, unspecified; E11.9 Type 2 diabetes mellitus without complications; Z88.6 Allergy status to analgesic agent; Z87.891 Personal history of nicotine dependence
CPT/HCPCS: 93005; 99285; 36415; 82553; 82550; 85025; 80053; 81001; 84484; 74022; 70450; 70486; 72125; 93010; J3490 ×2

== ENCOUNTER 2018-09-14 15:40 | Inpatient (IN) | payer MEDICARE ==
[2018-09-14 17:09] LABS: ABSOLUTE EOSINOPHILS # (AUTO) 0.1 10^3/uL (0.0-0.6); ABSOLUTE LYMPHOCYTES (AUTO) 1.7 10^3/uL (0.5-4.7); ABSOLUTE MONOCYTES (AUTO) 0.5 10^3/uL (0.1-1.4); ABSOLUTE NEUT (AUTO) 3.6 10^3/uL (1.7-8.2); BASOPHILS % (AUTO) 0.5 % (0-2); HEMATOCRIT 18.8 % (36.0-47.0); LYMPHOCYTES % (AUTO) 28.1 % (13-45); MEAN CORPUSCULAR HGB CONC 31.9 g/dL (32.0-36.0); MEAN CORPUSCULAR VOLUME 75 fl (80-97); MONOCYTES % (AUTO) 8.9 % (3-13); PLATELET COUNT 397 10^3/uL (150-450); RED CELL DISTRIBUTION WIDTH 15.5 % (11.5-14.0); SEGMENTED NEUTROPHILS % (AUTO) 60.5 % (42-78); TOTAL CELLS COUNTED % (AUTO) 100 %; WHITE BLOOD COUNT 5.9 10^3/uL (4.0-10.5)
[2018-09-14 17:29] LABS: APPEARANCE,URINE CLEAR; BILIRUBIN,URINE NEGATIVE (NEGATIVE); COLOR,URINE YELLOW; GLUCOSE, URINE NEGATIVE (NEGATIVE); KETONES,URINE NEGATIVE (NEGATIVE); LEUKOCYTE ESTERASE,URINE MODERATE (NEGATIVE); NITRITE,URINE NEGATIVE (NEGATIVE); PROTEIN,URINE NEGATIVE (NEGATIVE); URINE SPECIFIC GRAVITY 1.013; UROBILINOGEN,URINE NEGATIVE mg/dL (<2.0)
[2018-09-14 18:06] LABS: FERRITIN 5.21 ng/mL (11.1-264.0)
[2018-09-14 18:37] LABS: IRON(TIBC) < 10.1 ug/dL (37-170)
--- NOTE | 2018-09-14 18:55 | PDOC H&P ---
History of Present Illness Admission Date/PCP: 09/14/18 15:40 IRVING PEDRITO Patient complains of: Exertional shortness of breath History of Present Illness: JACKOSN FOWLER is a 78 year old female patient who presented to the office for her scheduled follow up and complain about shortness of breath with walking in her house. She was instructed to discontinue her Spiriva several months ago by her orthopaedic physician assistant. She remain on Ventolin HFA usage on prn bases. She denied any chest pain, palpitation, orthopnea, PND or leg swelling. She reported compliance with her medications. She denied an significant wheezing, coughing, fever, or chills. Gary initial evaluation in the office was unrevealing but there was concern for worsening COPD symptoms. She was started on Symbicort 160/4,5 mcg 2 puffs po bid. Her accompanying CBC with diff. evaluation revealed significant anemia with Hemoglobin at 6.1 gm/dl. She was advised admission to observation bed for further evaluation and management of symptomatic anemia. Of note she is on Eliquis therapy for chronic atrial fibrillation. Her other morbidities include IBS with constipation, persistent insomnia, Glaucoma, osteoarthritis, Hypertension, Diabetes mellitus type 2, and pulmonary emphysema. Past Medical History Cardiac Medical History: Reports: Atrial Fibrillation, Myocardial Infarction, Hypertension Denies: Coronary Artery Disease Pulmonary Medical History: Reports: Chronic Obstructive Pulmonary Disease (COPD) - NO OXYGEN Denies: Asthma, Bronchitis, Pneumonia Neurological Medical History: Denies: Seizures Endocrine Medical History: Reports: Diabetes Mellitus Type 2 GI Medical History: Denies: Hepatitis, Hiatal Hernia Musculoskeltal Medical History: Reports: Arthritis - RIGHT KNEE Hematology: Reports: Anemia Denies: Sickle Cell Disease Past Surgical History Past Surgical History: Reports: Hysterectomy Denies: Amputation, Mastectomy, Pacemaker Social History Smoking Status: Former Smoker Frequency of Alcohol Use: None Hx Recreational Drug Use: No Family History Family History: Reviewed & Not Pertinent Parental Family History Reviewed: Yes Children Family History Reviewed: Yes Sibling(s) Family History Reviewed.: Yes Medication/Allergy Home Medications: Albuterol Sulfate [Ventolin 0.042% Neb 1.25 Mg/3 Ml Vial.Neb] 1.25 mg IH Q4 03/16/12 Metformin HCl [Glucophage 500 Mg Tablet] 500 mg PO DAILY 03/16/12 Diltiazem HCl [Cardizem Cd 120 Mg Capsule] 120 mg PO DAILY 02/18/13 Apixaban [Eliquis 5 mg Tablet] 1 tab PO DAILY 07/08/18 Diltiazem HCl [Dilt-Xr] 1 tab PO DAILY 07/08/18 Allergies/Adverse Reactions: aspirin [Aspirin] Allergy (Verified 07/08/18 09:28) Tachycardia propoxyphene napsylate [From Darvocet-N 100] Adverse Reaction (Verified 07/08/18 09:28) Nausea Review of Systems Constitutional: ABSENT: chills, fever(s), headache(s), weight gain, weight loss Eyes: PRESENT: visual disturbances - CAWG Ears: ABSENT: hearing changes Nose, Mouth, and Throat: ABSENT: as per HPI, headache(s), mouth pain, sore throat, vertigo, other Cardiovascular: PRESENT: dyspnea on exertion. ABSENT: as per HPI, chest pain, edema, orthropnea, palpitations, other Respiratory: PRESENT: dyspnea. ABSENT: as per HPI, cough, hemoptysis, sputum, other Gastrointestinal: ABSENT: abdominal pain, constipation, diarrhea, hematemesis, hematochezia, nausea, vomiting Genitourinary: ABSENT: dysuria, hematuria Musculoskeletal: ABSENT: joint swelling Integumentary: ABSENT: rash, wounds Neurological: ABSENT: abnormal gait, abnormal speech, confusion, dizziness, focal weakness, syncope Psychiatric: ABSENT: anxiety, depression, homidical ideation, suicidal ideation Endocrine: ABSENT: cold intolerance, heat intolerance, polydipsia, polyuria Hematologic/Lymphatic: ABSENT: easy bleeding, easy bruising, lymphadenopathy Allergic/Immunologic: ABSENT: seasonal rhinorrhea Physical Exam Vital Signs: Temp Pulse Resp BP Pulse Ox 97.9 F 67 20 134/57 H 100 09/14/18 16:04 09/14/18 16:04 09/14/18 16:04 09/14/18 16:04 09/14/18 16:04 Intake & Output 09/13/18 09/14/18 09/15/18 06:59 06:59 06:59 Weight 57.7 kg General appearance: PRESENT: no acute distress, well-developed, well-nourished Head exam: PRESENT: atraumatic, normocephalic Eye exam: PRESENT: conjunctiva pink, EOMI, PERRLA. ABSENT: scleral icterus Ear exam: PRESENT: normal external ear exam Mouth exam: PRESENT: moist, tongue midline Neck exam: PRESENT: full ROM. ABSENT: carotid bruit, JVD, lymphadenopathy, thyromegaly Respiratory exam: PRESENT: clear to auscultation enrique Cardiovascular exam: PRESENT: RRR, +S1, +S2. ABSENT: diastolic murmur, systolic murmur Vascular exam: PRESENT: normal capillary refill, pallor GI/Abdominal exam: PRESENT: normal bowel sounds, soft. ABSENT: distended, guarding, mass, organolmegaly, rebound, tenderness Rectal exam: PRESENT: deferred Extremities exam: ABSENT: pedal edema Musculoskeletal exam: PRESENT: deformity - related to multiple joints involvcement with arthritis Neurological exam: PRESENT: alert, awake, oriented to person, oriented to place, oriented to time, oriented to situation, CN II-XII grossly intact. ABSENT: motor sensory deficit Psychiatric exam: PRESENT: appropriate affect, normal mood. ABSENT: homicidal ideation, suicidal ideation Skin exam: PRESENT: dry, intact, warm. ABSENT: cyanosis, rash Results Laboratory Results: 09/14/18 16:55 09/14/18 09/14/18 09/14/18 16:55 16:55 17:00 WBC 5.9 RBC 2.50 L Hgb 6.0 L Hct 18.8 L MCV 75 L MCH 24.0 L MCHC 31.9 L RDW 15.5 H Plt Count 397 Seg Neutrophils % 60.5 Lymphocytes % 28.1 Monocytes % 8.9 Eosinophils % 2.0 Basophils % 0.5 Absolute Neutrophils 3.6 Absolute Lymphocytes 1.7 Absolute Monocytes 0.5 Absolute Eosinophils 0.1 Absolute Basophils 0.0 Urine Color YELLOW Urine Appearance CLEAR Urine pH 6.0 Ur Specific [place] 1.013 Urine Protein NEGATIVE Urine Glucose (UA) NEGATIVE Urine Ketones NEGATIVE Urine Blood NEGATIVE Urine Nitrite NEGATIVE Ur Leukocyte Esterase MODERATE H Urine WBC (Auto) 7 Urine RBC (Auto) 1 Blood Type A POSITIVE Antibody Screen NEGATIVE Assessment & Plan - Diagnosis (1) Symptomatic anemia Is this a current diagnosis for this admission?: Yes Plan: She will be admitted to observation bed for PRBC transfusion and further evaluation for possible blood loss, particularly on Eliquis therapy. (2) Chronic atrial fibrillation Is this a current diagnosis for this admission?: Yes Plan: I will hold Eliquis therapy for now. I will advance her abed status to panel monitor bed while on admission and off Eliquis. (3) shelter current use of anticoagulant therapy Is this a current diagnosis for this admission?: Yes Plan: Hold Eliquis usage due to her severe anemia. Follow up with GI consultation for possible endoscopy and colonoscopy evaluation. (4) HTN (hypertension) Qualifiers: Hypertension type: essential hypertension Qualified Code(s): I10 - Essential (primary) hypertension Is this a current diagnosis for this admission?: Yes Plan: Maintain on preadmission dietary and medication management. (5) Diabetes mellitus type 2 in nonobese Is this a current diagnosis for this admission?: Yes Plan: Maintain on preadmission dietary and medication management. (6) COPD (chronic obstructive pulmonary disease) Qualifiers: COPD type: emphysema Emphysema type: unspecified Qualified Code(s): J43.9 - Emphysema, unspecified Is this a current diagnosis for this admission?: Yes Plan: Maintain on preadmission medication management. (7) Persistent insomnia Is this a current diagnosis for this admission?: Yes Plan: Maintain on preadmission medication management. - Time Time Spent: 50 to 70 Minutes Medications reviewed and adjusted accordingly: Yes Anticipated discharge: Home with Homehealth Within: within 48 hours - Plan Summary Plan Summary: See admitting attending physician orders as per above outlined care plan. I had extensive discussion with patient and daughter at bedside regarding plan of care. All questions were adequately answered.
[2018-09-14] MEDS ORDERED: DEXTROSE 40% GEL 15 GM TUBE PO PRN ×2 (18:59)
[2018-09-14] MEDS ORDERED: DEXTROSE 50%-WATER 25 GM/50 ML DISP.SYRIN IV PRN ×2 (18:59)
[2018-09-14] MEDS ORDERED: GLUCAGON,HUMAN RECOMB 1 MG INJ IM PRN (18:59)
[2018-09-14 19:10] LABS: INTERNATIONAL RATION (INR) 1.13; PROTHROMBIN TIME 15.1 SEC (11.4-15.4)
[2018-09-14 19:11] LABS: PARTIAL THROMBOPLASTIN TIME 31.3 SEC (23.5-35.8)
[2018-09-14] MEDS ORDERED: BISACODYL 5 MG TABEC PO ONE (21:00)
[2018-09-14] MEDS: BUDESONIDE/FORMOTEROL 160-4.5 MCG 60 PUFF/6 GM MDI IH SCH (21:47)
[2018-09-14] MEDS: INSULIN LISPRO 100 UNIT/ML 3 ML VIAL SUBCUT SCH (21:49)
[2018-09-15] MEDS: LANSOPRAZOLE 30 MG TAB.RAP.DR PO SCH (05:06)
--- NOTE | 2018-09-15 07:54 | PDOC PROGRESS REPORT ---
Subjective Progress Note for:: 09/15/18 Subjective:: Transfused 2 units PRBC. Stool occult blood testing was positive. Eliquis on hold presently. No chest pain, difficulty with breathing, nausea, vomiting or abdominal pain. Reason For Visit: SYMPTOMATIC ANEMIA Physical Exam Vital Signs: Temp Pulse Resp BP Pulse Ox 98.0 F 62 18 125/52 L 98 09/15/18 03:46 09/15/18 07:00 09/15/18 03:46 09/15/18 03:46 09/15/18 03:46 Intake & Output 09/14/18 09/15/18 09/16/18 06:59 06:59 06:59 Intake Total 756 Output Total 650 Balance 106 Weight 58.6 kg General appearance: PRESENT: no acute distress, well-developed, well-nourished Eye exam: PRESENT: conjunctiva pink, EOMI, PERRLA. ABSENT: scleral icterus Ear exam: PRESENT: normal external ear exam Mouth exam: PRESENT: moist Respiratory exam: PRESENT: clear to auscultation enrique Cardiovascular exam: PRESENT: RRR, +S1, +S2. ABSENT: diastolic murmur, systolic murmur Vascular exam: PRESENT: normal capillary refill. ABSENT: pallor GI/Abdominal exam: PRESENT: normal bowel sounds, soft. ABSENT: distended, guarding, mass, organolmegaly, rebound, tenderness Extremities exam: ABSENT: pedal edema Neurological exam: PRESENT: alert, awake, oriented to person, oriented to place, oriented to time, oriented to situation, CN II-XII grossly intact. ABSENT: motor sensory deficit Psychiatric exam: PRESENT: appropriate affect, normal mood. ABSENT: homicidal ideation, suicidal ideation Skin exam: PRESENT: dry, intact, warm. ABSENT: cyanosis, rash Results Laboratory Results: 09/14/18 16:55 09/14/18 09/14/18 09/14/18 16:55 16:55 16:55 WBC 5.9 RBC 2.50 L Hgb 6.0 L Hct 18.8 L MCV 75 L MCH 24.0 L MCHC 31.9 L RDW 15.5 H Plt Count 397 Seg Neutrophils % 60.5 Lymphocytes % 28.1 Monocytes % 8.9 Eosinophils % 2.0 Basophils % 0.5 Absolute Neutrophils 3.6 Absolute Lymphocytes 1.7 Absolute Monocytes 0.5 Absolute Eosinophils 0.1 Absolute Basophils 0.0 Iron < 10.1 L TIBC 496 H % Saturation UNABLE TO CALCULATE Ferritin 5.21 L Vitamin B12 290.0 Folate 10.50 Urine Color Urine Appearance Urine pH Ur Specific [place] Urine Protein Urine Glucose (UA) Urine Ketones Urine Blood Urine Nitrite Ur Leukocyte Esterase Urine WBC (Auto) Urine RBC (Auto) Stool Occult Blood Blood Type A POSITIVE Antibody Screen NEGATIVE 09/14/18 09/14/18 17:00 21:05 WBC RBC Hgb Hct MCV MCH MCHC RDW Plt Count Seg Neutrophils % Lymphocytes % Monocytes % Eosinophils % Basophils % Absolute Neutrophils Absolute Lymphocytes Absolute Monocytes Absolute Eosinophils Absolute Basophils Iron TIBC % Saturation Ferritin Vitamin B12 Folate Urine Color YELLOW Urine Appearance CLEAR Urine pH 6.0 Ur Specific [place] 1.013 Urine Protein NEGATIVE Urine Glucose (UA) NEGATIVE Urine Ketones NEGATIVE Urine Blood NEGATIVE Urine Nitrite NEGATIVE Ur Leukocyte Esterase MODERATE H Urine WBC (Auto) 7 Urine RBC (Auto) 1 Stool Occult Blood POSITIVE Blood Type Antibody Screen Assessment & Plan - Diagnosis (1) Symptomatic anemia Is this a current diagnosis for this admission?: Yes (2) Iron deficiency anemia due to chronic blood loss Is this a current diagnosis for this admission?: Yes Plan: Follow up on endoscopic evaluation findings. 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 Is this a current diagnosis for this admission?: Yes (5) HTN (hypertension) Qualifiers: Hypertension type: essential hypertension Qualified Code(s): I10 - Essential (primary) hypertension Is this a current diagnosis for this admission?: Yes (6) Diabetes mellitus type 2 in nonobese Is this a current diagnosis for this admission?: Yes (7) COPD (chronic obstructive pulmonary disease) Qualifiers: COPD type: emphysema Emphysema type: unspecified Qualified Code(s): J43.9 - Emphysema, unspecified Is this a current diagnosis for this admission?: Yes (8) Persistent insomnia Is this a current diagnosis for this admission?: Yes - Time Time Spent with patient: 25-34 minutes Medications reviewed and adjusted accordingly: Yes Anticipated discharge: Home Within: within 24 hours - Inpatient Certification Post Hospital Care: D/C Rec[employer] Documentation - Plan Summary Plan Summary: Follow up on post transfusion CBC findings. Awaiting endoscopic evaluation.
[2018-09-15] MEDS ORDERED: PEG 3350/NA SULF,BICARB,CL/KCL 4000 ML PO ONE (08:00)
[2018-09-15 09:15] LABS: ABSOLUTE EOSINOPHILS # (AUTO) 0.1 10^3/uL (0.0-0.6); ABSOLUTE LYMPHOCYTES (AUTO) 0.9 10^3/uL (0.5-4.7); ABSOLUTE MONOCYTES (AUTO) 0.5 10^3/uL (0.1-1.4); ABSOLUTE NEUT (AUTO) 4.4 10^3/uL (1.7-8.2); BASOPHILS % (AUTO) 0.5 % (0-2); EOSINOPHILS % (AUTO) 1.3 % (0-6); HEMATOCRIT 23.8 % (36.0-47.0); LYMPHOCYTES % (AUTO) 15.9 % (13-45); MEAN CORPUSCULAR HEMOGLOBIN 26.7 pg (27.0-33.4); MEAN CORPUSCULAR HGB CONC 34.9 g/dL (32.0-36.0); MEAN CORPUSCULAR VOLUME 77 fl (80-97); MONOCYTES % (AUTO) 8.1 % (3-13); PLATELET COUNT 339 10^3/uL (150-450); RED BLOOD COUNT 3.11 10^6/uL (3.72-5.28); SEGMENTED NEUTROPHILS % (AUTO) 74.2 % (42-78); TOTAL CELLS COUNTED % (AUTO) 100 %; WHITE BLOOD COUNT 5.9 10^3/uL (4.0-10.5)
[2018-09-15 09:21] LABS: ALANINE AMINOTRANSFERASE 19 U/L (9-52); ALBUMIN 3.6 g/dL (3.5-5.0); ALKALINE PHOSPHATASE 57 U/L (38-126); ANION GAP 9 (5-19); ASPARTATE AMINO TRANSFERASE 16 U/L (14-36); BILIRUBIN,DIRECT 0.1 mg/dL (0.0-0.4); BILIRUBIN,TOTAL 0.8 mg/dL (0.2-1.3); BLOOD UREA NITROGEN 21 mg/dL (7-20); CALCIUM 9.1 mg/dL (8.4-10.2); CARBON DIOXIDE 26 mmol/L (22-30); CHLORIDE 102 mmol/L (98-107); GLUCOSE 105 mg/dL (75-110); HEMOGLOBIN 8.3 g/dL (12.0-15.5); POTASSIUM 4.4 mmol/L (3.6-5.0); SODIUM 136.7 mmol/L (137-145); TOTAL PROTEIN 5.9 g/dL (6.3-8.2)
[2018-09-15] MEDS: INSULIN LISPRO 100 UNIT/ML 3 ML VIAL SUBCUT SCH ×4 (09:34→22:19)
[2018-09-15] MEDS ORDERED: (PENDING PHARMACY ID) (Losartan/Hydrochlorothiazide [Losartan-Hctz 100-25 Mg Tab] 1 TAB) PO SCH (10:00)
[2018-09-15] MEDS: DILTIAZEM HCL 120 MG CAP.SR.24H PO SCH (10:08)
[2018-09-15] MEDS: BUDESONIDE/FORMOTEROL 160-4.5 MCG 60 PUFF/6 GM MDI IH SCH ×2 (10:08→22:15)
[2018-09-15] MEDS: DOCUSATE SODIUM 100 MG CAPSULE PO SCH (10:09)
[2018-09-15] MEDS: LOSARTAN POTASSIUM 50 MG TABLET PO SCH (10:10)
[2018-09-15] MEDS: ASCORBIC ACID 500 MG TABLET PO SCH (10:13)
[2018-09-15] MEDS: METFORMIN HCL 500 MG TABLET PO SCH ×2 (10:13→18:24)
[2018-09-15] MEDS: HYDROCHLOROTHIAZIDE 25 MG TABLET PO SCH (10:13)
[2018-09-15] MEDS ORDERED: DIPHENHYDRAMINE HCL 50 MG/ML VIAL ONE (14:59)
[2018-09-15] MEDS ORDERED: FLUMAZENIL INJ 0.5 MG/5 ML VIAL ONE (15:00)
[2018-09-15] MEDS ORDERED: GLUCAGON,HUMAN RECOMB 1 MG INJ ONE (15:00)
[2018-09-15] MEDS ORDERED: ONDANSETRON HCL INJ/PF 4 MG/2 ML SDV ONE (15:00)
[2018-09-15] MEDS ORDERED: NALOXONE HCL INJ/PF 0.4 MG/1 ML SDV ONE (15:00)
[2018-09-15] MEDS ORDERED: EPINEPHRINE INJ 1 MG/10 ML DISP.SYRIN ONE (15:00)
[2018-09-15] MEDS: MIDAZOLAM 2 MG/2 ML INJ ONE ×2 (17:15→17:22)
[2018-09-15] MEDS: FENTANYL CITRATE INJ/PF 100 MCG/2 ML AMPUL ONE ×2 (17:17→17:34)
[2018-09-16] MEDS: LANSOPRAZOLE 30 MG TAB.RAP.DR PO SCH (05:33)
[2018-09-16] MEDS: INSULIN LISPRO 100 UNIT/ML 3 ML VIAL SUBCUT SCH ×4 (07:54→21:15)
[2018-09-16 09:04] LABS: ABSOLUTE EOSINOPHILS # (AUTO) 0.1 10^3/uL (0.0-0.6); ABSOLUTE LYMPHOCYTES (AUTO) 1.2 10^3/uL (0.5-4.7); ABSOLUTE MONOCYTES (AUTO) 0.6 10^3/uL (0.1-1.4); ABSOLUTE NEUT (AUTO) 3.8 10^3/uL (1.7-8.2); BASOPHILS % (AUTO) 0.5 % (0-2); HEMOGLOBIN 8.1 g/dL (12.0-15.5); LYMPHOCYTES % (AUTO) 21.3 % (13-45); MEAN CORPUSCULAR HEMOGLOBIN 25.9 pg (27.0-33.4); MEAN CORPUSCULAR HGB CONC 33.9 g/dL (32.0-36.0); MEAN CORPUSCULAR VOLUME 77 fl (80-97); MONOCYTES % (AUTO) 9.7 % (3-13); PLATELET COUNT 338 10^3/uL (150-450); RED BLOOD COUNT 3.14 10^6/uL (3.72-5.28); RED CELL DISTRIBUTION WIDTH 16.3 % (11.5-14.0); SEGMENTED NEUTROPHILS % (AUTO) 66.5 % (42-78); TOTAL CELLS COUNTED % (AUTO) 100 %; WHITE BLOOD COUNT 5.8 10^3/uL (4.0-10.5)
[2018-09-16 09:20] LABS: ANION GAP 7 (5-19); BLOOD UREA NITROGEN 16 mg/dL (7-20); CALCIUM 9.1 mg/dL (8.4-10.2); CARBON DIOXIDE 27 mmol/L (22-30); CHLORIDE 104 mmol/L (98-107); GLUCOSE 86 mg/dL (75-110); SODIUM 137.6 mmol/L (137-145)
[2018-09-16] MEDS: METFORMIN HCL 500 MG TABLET PO SCH ×2 (10:13→19:00)
[2018-09-16] MEDS: LOSARTAN POTASSIUM 50 MG TABLET PO SCH (10:13)
[2018-09-16] MEDS: DILTIAZEM HCL 120 MG CAP.SR.24H PO SCH (10:13)
[2018-09-16] MEDS: HYDROCHLOROTHIAZIDE 25 MG TABLET PO SCH (10:14)
[2018-09-16] MEDS: DOCUSATE SODIUM 100 MG CAPSULE PO SCH (10:14)
[2018-09-16] MEDS: ASCORBIC ACID 500 MG TABLET PO SCH (10:14)
[2018-09-16] MEDS: BUDESONIDE/FORMOTEROL 160-4.5 MCG 60 PUFF/6 GM MDI IH SCH ×2 (10:14→21:16)
--- NOTE | 2018-09-16 19:06 | PDOC DISCHARGE SUMMARY ---
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 Is this a current diagnosis for this admission?: Yes (5) HTN (hypertension) Is this a current diagnosis for this admission?: Yes (6) Diabetes mellitus type 2 in nonobese Is this a current diagnosis for this admission?: Yes (7) COPD (chronic obstructive pulmonary disease) Is this a current diagnosis for this admission?: Yes (8) Persistent insomnia Is this a current diagnosis for this admission?: Yes - Additional Information Resuscitation Status: Full Code Discharge Diet: Cardiac, Diabetic Discharge Activity: Activity As Tolerated Prescriptions: Apixaban [Eliquis 2.5 mg Tablet] 2.5 mg PO BID #60 tablet Ascorbic Acid 500 mg PO DAILY #30 tablet Ferrous Sulfate [Feosol 325 mg Tablet] 325 mg PO DAILY #30 tab Lansoprazole [Prevacid] 30 mg PO DAILY #30 capsule.dr Home Medications: Albuterol Sulfate [Ventolin 0.042% Neb 1.25 mg/3 mL Ampul] 1.25 mg IH Q4 PRN 03/16/12 Metformin HCl [Glucophage 500 mg Tablet] 1,000 mg PO DAILY 03/16/12 Diltiazem HCl [Cardizem Cd 120 mg Capsule] 120 mg PO DAILY 02/18/13 Budesonide/Formoterol Fumarate [Symbicort HFA 160-4.5 mcg Inhaler 6 gm] 2 puff IN Q12 09/14/18 Docusate Sodium [Colace 100 mg Capsule] 2 cap PO DAILY 09/14/18 Losartan/Hydrochlorothiazide [Losartan-Hctz 100-25 mg Tab] 1 tab PO DAILY 09/14/18 Metformin HCl [Glucophage 500 mg Tablet] 500 mg PO QPM 09/14/18 Apixaban [Eliquis 2.5 mg Tablet] 2.5 mg PO BID #60 tablet 09/16/18 Ascorbic Acid 500 mg PO DAILY #30 tablet 09/16/18 Ferrous Sulfate [Feosol 325 mg Tablet] 325 mg PO DAILY #30 tab 09/16/18 Lansoprazole [Prevacid] 30 mg PO DAILY #30 capsule. 09/16/18 History of Present Illness History of Present Illness: JACKSON FOWLER is a 78 year old female patient who presented to the office for her scheduled follow up and complain about shortness of breath with walking in her house. She was instructed to discontinue her Spiriva several months ago by her court recording monitor. She remain on Ventolin HFA usage on prn bases. She denied any chest pain, palpitation, orthopnea, PND or leg swelling. She reported compliance with her medications. She denied an significant wheezing, coughing, fever, or chills. Gary initial evaluation in the office was unrevealing but there was concern for worsening COPD symptoms. She was started on Symbicort 160/4,5 mcg 2 puffs po bid. Her accompanying CBC with diff. evaluation revealed significant anemia with Hemoglobin at 6.1 gm/dl. She was advised admission to observation bed for further evaluation and management of symptomatic anemia. Of note she is on Eliquis therapy for chronic atrial fibrillation. Her other mor bidities include Irritable bowel syndrome with constipation, persistent insomnia, Glaucoma, osteoarthritis, Hypertension, Diabetes mellitus type 2, and pulmonary emphysema. Hospital Course Hospital Course: Patient was transfused 2 units of PRBC. Her initial hemoglobin did improved to 8.3 gm/dl. She had EGD and colonoscopy completed on 09/15/2018 with normal EGD findings and mid transverse colon polyp s/p polypectomy. Her shortness did improve but her hemoglobin remain suboptimal with repeat CBC revealing hemoglobin at 8.1 gm/dl. She received 2 units PRBC subsequently with satisfactory hemoglobin level at discharge above 9.0g/dl. She will re-start Eufemia bryan for chronic atrial fibrillation anticoagulation management at 2.5 mg po bid starting on . She will be discharge home on Prevacid 30 mg po daily, Ferrous sulfate 325 mg po daily and Ascorbic Acid 500 mg po daily. She will follow up with me in the office as instructed upon discharge. Physical Exam Vital Signs: Temp Pulse Resp BP Pulse Ox 98.8 F 63 16 123/62 99 09/16/18 16:40 09/16/18 16:40 09/16/18 16:40 09/16/18 16:40 09/16/18 16:40 Intake & Output 09/15/18 09/16/18 09/17/18 06:59 06:59 06:59 Intake Total 756 3740 918 Output Total 650 Balance 106 3740 918 Weight 58.6 kg 52.1 kg Physical Exam: General appearance: PRESENT: no acute distress, well-developed, well-nourished Eye exam: PRESENT: conjunctiva pink, EOMI, PERRLA. ABSENT: pallor, scleral icterus Ear exam: PRESENT: normal external ear exam Mouth exam: PRESENT: moist Respiratory exam: PRESENT: clear to auscultation enrique Cardiovascular exam: PRESENT: RRR, +S1, +S2. ABSENT: diastolic murmur, systolic murmur GI/Abdominal exam: PRESENT: normal bowel sounds, soft. ABSENT: distended, guarding, mass, organomegaly, rebound, tenderness Extremities exam: ABSENT: pedal edema Neurological exam: PRESENT: alert, awake, oriented to person, oriented to place, oriented to time, oriented to situation, CN II-XII grossly intact. ABSENT: motor sensory deficit Psychiatric exam: PRESENT: appropriate affect, normal mood. ABSENT: homicidal ideation, suicidal ideation Skin exam: PRESENT: dry, intact, warm. ABSENT: cyanosis, rash Results Laboratory Results: 09/16/18 08:44 09/16/18 08:44 09/14/18 09/16/18 09/16/18 16:55 08:44 08:44 WBC 5.8 RBC 3.14 L Hgb 8.1 L Hct 24.0 L MCV 77 L MCH 25.9 L MCHC 33.9 RDW 16.3 H Plt Count 338 Seg Neutrophils % 66.5 Lymphocytes % 21.3 Monocytes % 9.7 Eosinophils % 2.0 Basophils % 0.5 Absolute Neutrophils 3.8 Absolute Lymphocytes 1.2 Absolute Monocytes 0.6 Absolute Eosinophils 0.1 Absolute Basophils 0.0 Sodium 137.6 Potassium 4.0 Chloride 104 Carbon Dioxide 27 Anion Gap 7 BUN 16 Creatinine 0.91 Est GFR ( Amer) > 60 Est GFR (Non-Af Amer) > 60 Glucose 86 Calcium 9.1 Blood Type A POSITIVE Antibody Screen NEGATIVE Qualifiers - * PATIENT BEING DISCHARGED WITH ANY OF THE FOLLOWING DIAGNOSIS: No Plan Discharge Plan: D/C home today and follow up in the office as instructed upon discharge.
[2018-09-16 21:09] LABS: ABSOLUTE EOSINOPHILS # (AUTO) 0.1 10^3/uL (0.0-0.6); ABSOLUTE LYMPHOCYTES (AUTO) 1.6 10^3/uL (0.5-4.7); ABSOLUTE MONOCYTES (AUTO) 0.8 10^3/uL (0.1-1.4); BASOPHILS % (AUTO) 0.6 % (0-2); EOSINOPHILS % (AUTO) 1.3 % (0-6); HEMATOCRIT 33.3 % (36.0-47.0); LYMPHOCYTES % (AUTO) 21.1 % (13-45); MEAN CORPUSCULAR HEMOGLOBIN 27.3 pg (27.0-33.4); MEAN CORPUSCULAR HGB CONC 34.6 g/dL (32.0-36.0); MEAN CORPUSCULAR VOLUME 79 fl (80-97); MONOCYTES % (AUTO) 10.1 % (3-13); PLATELET COUNT 312 10^3/uL (150-450); RED BLOOD COUNT 4.23 10^6/uL (3.72-5.28); RED CELL DISTRIBUTION WIDTH 16.2 % (11.5-14.0); SEGMENTED NEUTROPHILS % (AUTO) 66.9 % (42-78); TOTAL CELLS COUNTED % (AUTO) 100 %; WHITE BLOOD COUNT 7.5 10^3/uL (4.0-10.5)
[2018-09-16 21:19] LABS: HEMOGLOBIN 11.5 g/dL (12.0-15.5)
[2018-09-16 21:33] VITALS: BP 100/50
--- NOTE | 2018-10-23 09:37 | PDOC CONSULTATION ---
Consultation Consult Date: 09/14/18 History of Present Illness Admission Date/PCP: BHARATHI PETERS MD History of Present Illness: JACKSON FOWLER is a 78 year old female Patient was admitted on 09/14/2018 with shortness of breath and a hemoglobin of 6. She has a chronic history of iron deficiency anemia and has been on iron supplements off and on for many years. Review of her old blood counts showed a hemoglobin of 10.9 in 2010, 9.5 in 2012, 9.8 in July 2018. Her ferritin was as low as 6.6 in May 2017 and it was 5 during this admission. She was evaluated in [place] about 4 years ago for anemia and according to the patient she had an abnormal capsule endoscopy. She denies abdominal pain, rectal bleeding, nausea, or vomiting. Her stools as been dark since she started iron. Past Medical History Cardiac Medical History: Reports: Atrial Fibrillation, Myocardial Infarction, Hypertension Denies: Coronary Artery Disease Pulmonary Medical History: Reports: Chronic Obstructive Pulmonary Disease (COPD) - NO OXYGEN Denies: Asthma, Bronchitis, Pneumonia Neurological Medical History: Denies: Seizures Endocrine Medical History: Reports: Diabetes Mellitus Type 2 GI Medical History: Denies: Hepatitis, Hiatal Hernia Musculoskeltal Medical History: Reports: Arthritis - RIGHT KNEE Hematology: Reports: Anemia Denies: Sickle Cell Disease Past Surgical History Past Surgical History: Reports: Hysterectomy Denies: Amputation, Mastectomy, Pacemaker Social History Smoking Status: Unknown if Ever Smoked Family History Family History: Reviewed & Not Pertinent Parental Family History Reviewed: No Children Family History Reviewed: NA Sibling(s) Family History Reviewed.: NA Medication/Allergy Home Medications: Albuterol Sulfate [Ventolin 0.042% Neb 1.25 mg/3 mL Ampul] 1.25 mg IH Q4 PRN 03/16/12 Metformin HCl [Glucophage 500 mg Tablet] 1,000 mg PO DAILY 03/16/12 Diltiazem HCl [Cardizem Cd 120 mg Capsule] 120 mg PO DAILY 02/18/13 Budesonide/Formoterol Fumarate [Symbicort HFA 160-4.5 mcg Inhaler 6 gm] 2 puff IN Q12 09/14/18 Docusate Sodium [Colace 100 mg Capsule] 2 cap PO DAILY 09/14/18 Losartan/Hydrochlorothiazide [Losartan-Hctz 100-25 mg Tab] 1 tab PO DAILY 09/14/18 Metformin HCl [Glucophage 500 mg Tablet] 500 mg PO QPM 09/14/18 Apixaban [Eliquis 2.5 mg Tablet] 2.5 mg PO BID #60 tablet 09/16/18 Ascorbic Acid 500 mg PO DAILY #30 tablet 09/16/18 Ferrous Sulfate [Feosol 325 mg Tablet] 325 mg PO DAILY #30 tab 09/16/18 Lansoprazole [Prevacid] 30 mg PO DAILY #30 capsule. 09/16/18 Allergies/Adverse Reactions: aspirin [Aspirin] Allergy (Verified 07/08/18 09:28) Tachycardia propoxyphene napsylate [From Darvocet-N 100] Adverse Reaction (Verified 07/08/18 09:28) Nausea Review of Systems All systems: reviewed and no additional remarkable complaints except as stated Physical Exam Exam: General: Patient is alert and looks well. HEENT: There is pallor but no jaundice. PERRLA. Oropharynx normal Respiratory: No chest deformity. No respiratory distress. Chest wall palpitation was unremarkable. Breath sounds were normal Cardiovascular: Heart sounds 1 and 2 normal with no murmurs. Abdominal: Not distended. Soft and nontender. Liver and spleen not palpable. No ascites demonstrated. Bowel sounds active. Rectal examination was deferred. Extremities: No edema Neurological: Alert and oriented x4. Grossly nonfocal. Normal speech Skin: No significant rash Psychological: Normal affect Assessment & Plan - Diagnosis (1) Chronic atrial fibrillation Is this a current diagnosis for this admission?: Yes (2) Iron deficiency anemia due to chronic blood loss Is this a current diagnosis for this admission?: Yes Plan: She has significant symptomatic iron deficiency anemia. She has been feeling worse since she started Eliquis about 6 weeks ago and this may have made her anemia worse. Her hemoglobin was 9.8 in July. She will undergo an EGD and colonoscopy for further evaluation. This will be followed by capsule endoscopy as outpatient. I will attempt to obtain copies of previous endoscopies in [place]
--- NOTE | 2018-10-23 09:38 | Operative Report ---
Operative Report DATE OF SURGERY: 09/15/18 Operative Report: Pre-op diagnosis: Iron deficiency anemia Post-op diagnosis: 1. Normal EGD 2. Right-sided diverticulosis 3. Transverse colon polyp Surgery: Upper endoscopy and Colonoscopy with polypectomy Medications: Versed 2mg, Fentanyl 75mcg IV push Tissue removed: Colon polyp Procedure: After informed consent obtained from patient, patient's pharynx was sprayed with Hurricane and conscious sedation was achieved. The upper endoscope was then inserted into the esophagus under direct vision and advanced into the stomach and further into the duodenum. Detailed examination of the duodenum, stomach and the esophagus was then performed. A digital rectal examination was performed and this was unremarkable. The colonoscope was inserted into the rectum and advanced to the cecum. The appendiceal orifice and the terminal ileum were both identified. The mucosa was examined into details as the colonoscope was slowly pulled out of the patient. The endoscope was retroflexed in the rectum. Patient tolerated the procedure well. Findings Esophagus: Normal Stomach: Normal Duodenum: This was examined beyond the ligament of Treitz and found to be normal Cecum: Normal Ascending colon: Multiple diverticuli noted Transverse colon: 5 mm polyp removed with a hot snare Descending colon: Normal Sigmoid colon: Few diverticuli Rectum: Normal except for internal hemorrhoids Plan: Await pathology. We will schedule capsule endoscopy as outpatient OPERATION: .
== END 2018-09-16 21:46 | disposition home or self-care (01) | DRG 379 ==
LOC: INTOOBSV 15:40 → OBSVTOIN 15:40 → 3N 15:40 → OBSVTOIN 09-16 08:19
PROVIDERS: ADMIT Internal Medicine Geriatric Medicine; ATTEND Internal Medicine Geriatric Medicine
PROC: 30233N1 Transfusion of Nonautologous Red Blood Cells into Peripheral Vein, Percutaneous Approach (ICD-10-PCS; 2018-09-14)
PROC: 0DBL8ZX Excision of Transverse Colon, Via Natural or Artificial Opening Endoscopic, Diagnostic (ICD-10-PCS; principal; 2018-09-16)
DX: K57.31 Diverticulosis of large intestine without perforation or abscess with bleeding (principal); D50.0 Iron deficiency anemia secondary to blood loss (chronic); I48.2 Chronic atrial fibrillation; I10 Essential (primary) hypertension; E11.9 Type 2 diabetes mellitus without complications; G47.09 Other insomnia; K58.1 Irritable bowel syndrome with constipation; J43.9 Emphysema, unspecified; M17.11 Unilateral primary osteoarthritis, right knee; K63.5 Polyp of colon; K64.8 Other hemorrhoids; I25.2 Old myocardial infarction; Z79.01 Long term (current) use of anticoagulants; Z79.84 Long term (current) use of oral hypoglycemic drugs; Z79.899 Other long term (current) drug therapy; Z90.710 Acquired absence of both cervix and uterus; Z87.891 Personal history of nicotine dependence; Z88.6 Allergy status to analgesic agent
CPT/HCPCS: 36415; 36430; 43239; 45385; 80048; 80053; 80061; 81001; 82272; 82607; 82728; 82746; 82962; 83036; 83540; 83550; 85025; 85610; 85730; 86850; 86900; 86901; 86920; 88305; G0378; G0379; J0171; J1200; J1610; J2250; J2310; J2405; J3010; J3490; P9016

== ENCOUNTER → 2018-10-26 | Outpatient (CLI) | payer MEDICARE ==
[2018-10-26 11:53] LABS: HEMATOCRIT 30.9 % (36.0-47.0); HEMOGLOBIN 10.4 g/dL (12.0-15.5); MEAN CORPUSCULAR HEMOGLOBIN 27.1 pg (27.0-33.4); MEAN CORPUSCULAR HGB CONC 33.8 g/dL (32.0-36.0); MEAN CORPUSCULAR VOLUME 80 fl (80-97); PLATELET COUNT 295 10^3/uL (150-450); RED BLOOD COUNT 3.86 10^6/uL (3.72-5.28); RED CELL DISTRIBUTION WIDTH 19.9 % (11.5-14.0); WHITE BLOOD COUNT 5.4 10^3/uL (4.0-10.5)
[2018-10-26 11:57] LABS: INTERNATIONAL RATION (INR) 1.01; PROTHROMBIN TIME 13.9 SEC (11.4-15.4)
== END ==
LOC: OD 11:13
PROVIDERS: ATTEND Internal Medicine Gastroenterology
DX: D50.0 Iron deficiency anemia secondary to blood loss (chronic) (principal)
CPT/HCPCS: 36415; 82728; 85027; 85610

== ENCOUNTER 2018-10-27 15:09 | Day surgery (SDC) | payer MEDICARE ==
[2018-10-27] MEDS ORDERED: ONDANSETRON HCL INJ/PF 4 MG/2 ML SDV ONE (16:30)
[2018-10-27] MEDS ORDERED: DIPHENHYDRAMINE HCL 50 MG/ML VIAL ONE (16:30)
[2018-10-27] MEDS ORDERED: FENTANYL CITRATE INJ/PF 100 MCG/2 ML AMPUL ONE (16:31)
[2018-10-27] MEDS ORDERED: FLUMAZENIL INJ 0.5 MG/5 ML VIAL ONE (16:31)
[2018-10-27] MEDS ORDERED: GLUCAGON,HUMAN RECOMB 1 MG INJ ONE (16:31)
[2018-10-27] MEDS ORDERED: NALOXONE HCL INJ/PF 0.4 MG/1 ML SDV ONE (16:31)
[2018-10-27] MEDS ORDERED: EPINEPHRINE INJ 1 MG/10 ML DISP.SYRIN ONE (16:31)
[2018-10-27] MEDS: MIDAZOLAM 2 MG/2 ML INJ ONE ×2 (17:38→17:42)
--- NOTE | 2018-10-27 17:58 | Operative Report ---
Operative Report DATE OF SURGERY: 10/27/18 Operative Report: Pre-op diagnosis: History of iron deficiency anemia, and active bleeding in the duodenum on capsule endoscopy Post-op diagnosis: Duodenal angiodysplasia Surgery: Esophagogastroduodenoscopy with argon plasma coagulation Medications: Versed 2mg Fentanyl 50mcg IV push Tissue removed: None Procedure: After informed consent obtained from patient, the throat was sprayed with Hurricane and conscious sedation was achieved. The upper endoscope was inserted into the esophagus under direct vision and advanced into the stomach. The duodenum was entered and examined to the second part. Endoscope was then slowly pulled out of the patient as the mucosa was examined into details. Patient tolerated procedure well. Findings Esophagus: Normal Antrum: Normal Body: Normal Fundus: Normal Duodenum first part: A 2 mm angiodysplasia was noted in the first part of duodenum and this was cauterized using the argon plasma hand box coverer. Duodenum second part: Normal Plan: Continue Prevacid. Hold Eliquis for 3 more days OPERATION: .
[2018-10-27 18:53] VITALS: BP 140/66
== END 2018-10-27 18:50 | disposition home or self-care (01) ==
LOC: END 15:09
PROVIDERS: ATTEND Internal Medicine Gastroenterology
DX: K31.819 Angiodysplasia of stomach and duodenum without bleeding (principal); D50.0 Iron deficiency anemia secondary to blood loss (chronic); Z79.01 Long term (current) use of anticoagulants
CPT/HCPCS: 43255; 82962; J2250; J3010; J0171; J1200; J1610; J2310; J2405; J3490